=== PATIENT | female | born 1935 ===

== ENCOUNTER 2017-01-07 08:26 | Emergency (ER) | payer MEDICARE, OTHER ==
[2017-01-07 08:27] VITALS: BMI 25.7
[2017-01-07 08:41] VITALS: TEMP 97.7; O2SAT 100
--- NOTE | 2017-01-07 08:56 | ED PDOC ---
Arrival/HPI - General Chief Complaint: Trauma Time Seen by Provider: 01/07/17 08:27 Historian: Patient, Family (sheree) - History of Present Illness Narrative History of Present Illness (Text): 01/07/17 08:45 Crystal Nina is an 81 year old female, whose past medical history includes hypertension and arthritis, who presents to the emergency department accompanied with niece, with complaints of pain on the right side of her body after a mechanical fall. Patient reports she was getting out the bed when her leg got caught on to a chair and she fell on her right side hitting her head, and right back side. Patient also notes having a big bruise in her right buttock from the fall. Patient denies any loss of consciousness. She also denies chest pain, shortness of breath, headache, fever, chills, cough, nausea, vomiting, diarrhea, abdominal pain, dizziness or lightheadedness. Time/Duration: Prior to Arrival Symptom Onset: Sudden Symptom Course: Unchanged Activities at Onset: Light Context: Home, Tripped Past Medical History - Provider Review Nursing Documentation Reviewed: Yes - Infectious Disease Hx of Infectious Diseases: None - Cardiac Hx Cardiac Disorders: Yes Hx Hypertension: Yes - Pulmonary Hx Respiratory Disorders: No - Neurological Hx Neurological Disorder: No - HEENT Hx HEENT Disorder: No - Renal Hx Renal Disorder: No - Endocrine/Metabolic Hx Endocrine Disorders: No - Hematological/Oncological Hx Blood Disorders: No - Integumentary Hx Dermatological Disorder: No - Musculoskeletal/Rheumatological Hx Musculoskeletal Disorders: Yes Hx Arthritis: Yes Other/Comment: R femur fracture - Gastrointestinal Hx Gastrointestinal Disorders: No - Genitourinary/Gynecological Hx Genitourinary Disorders: No - Psychiatric Hx Psychophysiologic Disorder: Yes Hx Depression: Yes Hx Substance Use: No - Surgical History Hx Cholecystectomy: Yes Hx Orthopedic Surgery: Yes (right femur fracture) Other/Comment: R femur fracture with plate - Anesthesia Hx Anesthesia Reactions: No Hx Malignant Hyperthermia: No Family/Social History - Physician Review Nursing Documentation Reviewed: Yes Family/Social History: Unknown Family HX Smoking Status: Never Smoked Hx Alcohol Use: No Hx Substance Use: No Allergies/Home Meds Allergies/Adverse Reactions: Allergies No Known Allergies Allergy (Verified 01/07/17 08:37) Home Medications: Home Meds Medication Instructions Recorded Confirmed Allopurinol [Zyloprim] 100 mg PO HS 01/02/16 01/07/17 Aspirin [Adult Low Dose Aspirin EC] 1 tab PO DAILY 01/02/16 01/07/17 Ca/D3/Mag/Zinc/Gulshan/Tato/Mgbor 1 tab PO DAILY 01/02/16 01/07/17 [Caltrate 600+D3+Min Chew Tab] Cetirizine HCl [Cetirizine HCl] 10 mg PO HS 01/02/16 01/07/17 Doxazosin [Cardura] 4 mg PO DAILY 01/02/16 01/07/17 Fluticasone/Vilanterol [Breo 1 inh INH DAILY 01/02/16 01/07/17 Ellipta 100-25 Mcg INH] Nebivolol [Bystolic] 20 mg PO HS 01/02/16 01/07/17 traMADol/Acetaminophen [Ultracet 1 tab PO BID PRN 01/02/16 01/07/17 37.5/325 mg] DULoxetine [Cymbalta] 20 mg PO DAILY 01/07/17 01/07/17 Esomeprazole Magnesium [Nexium] 40 mg PO DAILY 01/07/17 01/07/17 Eszopiclone [Lunesta] 4 mg PO HS 01/07/17 01/07/17 Meloxicam [Mobic] 15 mg PO DAILY 01/07/17 01/07/17 Multivitamin/Iron/Folic Acid 1 tab PO DAILY 01/07/17 01/07/17 [Centrum Adults Tablet] Pravastatin Sodium [Pravachol] 40 mg PO HS 01/07/17 01/07/17 Review of Systems - Review of Systems Constitutional: absent: Fevers Respiratory: absent: SOB Cardiovascular: absent: Chest Pain Gastrointestinal: absent: Abdominal Pain Genitourinary Female: absent: Dysuria Musculoskeletal: Back Pain (right side), Other (right buttock bruising and head trauma) Physical Exam Vital Signs Reviewed: Yes Vital Signs Temp Pulse Resp BP Pulse Ox 01/07/17 10:27 97.7 F 60 18 129/58 L 100 01/07/17 08:38 97.7 F 63 16 137/64 100 Temperature: Afebrile Blood Pressure: Normal Pulse: Regular Respiratory Rate: Normal Appearance: Positive for: Well-Appearing, Non-Toxic, Comfortable Pain Distress: None Mental Status: Positive for: Alert and Oriented X 3 - Systems Exam Head: Present: Atraumatic, Normocephalic Pupils: Present: PERRL Extroacular Muscles: Present: EOMI Conjunctiva: Present: Normal Mouth: Present: Moist Mucous Membranes Respiratory/Chest: Present: Clear to Auscultation, Good Air Exchange. No: Respiratory Distress, Accessory Muscle Use Cardiovascular: Present: Regular Rate and Rhythm, Normal S1, S2. No: Murmurs Abdomen: Present: Normal Bowel Sounds. No: Tenderness, Distention, Peritoneal Signs Back: Present: Paraspinal Tenderness (right sided paralumbar tenderness) Upper Extremity: Present: Normal Inspection, Normal ROM. No: Cyanosis, Edema, Tenderness, Swelling, Deformity Lower Extremity: Present: Normal Inspection, Other (ecchymosis on right buttock) . No: Edema, Deformity Neurological: Present: GCS=15, CN II-XII Intact, Speech Normal Skin: Present: Warm, Dry, Normal Color. No: Rashes Psychiatric: Present: Alert, Oriented x 3, Normal Insight, Normal Concentration Medical Decision Making ED Course and Treatment: 01/07/17 10:[address]: Creator : Faina La FINDINGS: HEMORRHAGE: No intracranial hemorrhage. BRAIN: No mass effect or edema. Generalized cerebral atrophy appropriate with the age noted VENTRICLES: Unremarkable. No hydrocephalus. CALVARIUM: Unremarkable. No fracture PARANASAL SINUSES: Unremarkable as visualized. No significant inflammatory changes. Swollen turbinates MASTOID AIR CELLS: Unremarkable as visualized. No inflammatory changes. OTHER FINDINGS: Vertebrobasilar atherosclerotic calcifications noted. IMPRESSION: No intracranial hemorrhage or mass effect. Global cerebral atrophy commensurate with patient's age. No calvarial fracture 01/07/17 10:[address]: Creator : Faina La FINDINGS: BLADDER: Unremarkable. No mass. REPRODUCTIVE ORGANS: Multiple calcified uterine fibroids VISUALIZED BOWEL: Redundant rectosigmoid colon a multiple diverticuli here. No gross pericolonic inflammatory change PERITONEUM: Unremarkable, as visualized. No free fluid. No free air. LYMPH NODES: Unremarkable. No enlarged lymph nodes. BONES: Mild anterior subluxation of L4 relative to L5. L4-5 disc space narrowing. Subluxation attributed to degenerative ligamentous laxity associated with the facet arthrosis here. L5-S1 disc space narrowing with L5-S1 facet arthrosis. No acute osseous fractures. Dynamic compression screw transfixing a right proximal femoral fracture. No gross hardware failure. VASCULATURE: Atherosclerotic vascular calcifications OTHER FINDINGS: Right gluteal subcutaneous mid Sarai measuring up to 4.1 cm with extensive subcutaneous edema/ subcutaneous bruising -bruising spans 12 cm cephalo caudal with a width of approximately 10 cm. No intramuscular hematoma. IMPRESSION: No acute fracture.Dynamic compression screw transfixing a right proximal femoral fracture without hardware failure appreciated Right gluteal subcutaneous hematoma with extensive surrounding edema/bruising. No intramuscular hematoma 01/07/17 12:53 xr neg, pt ambulatory, advise outpt f/u and return precautions - RAD Interpretation Radiology Orders: 01/07/17 08:47 HEAD W/O CONTRAST [CT] Stat LS SPINE AP/LAT [RAD] Stat PELVIS ONE VIEW [RAD] Stat RIBS RIGHT [RAD] Stat 01/07/17 09:30 PELVIS W/O PO OR IV CONTRAST [CT] Stat It Risk And Assurance Senior Manager: Radiologist - Medication Orders Current Medication Orders: Discontinued Medications Acetaminophen (Tylenol 325mg Tab) 650 mg PO STAT STA Stop: 01/07/17 08:50 Last Admin: 01/07/17 09:57 Dose: 650 mg MAR Pain/Vitals Document 01/07/17 09:57 AB (Rec: 01/07/17 10:01 AB [id number]) Pain Reassessment Is This A Pain ReAssessment? Yes Sleep Is patient sleeping during reassessment? No Presence of Pain Presence of Pain Yes Pain Scale Used Pain Scale Used Numeric Location Left, Right or Bilateral Right Upper or Lower Upper Pain Location Body Technical Services Assistant Description Constant Intensity 5 Scale Used Numeric Radiation Location right hip, right leg Pain Behavior Facial Grimacing Aggravating Factors ADL's Changing Position Alleviating Factors Medication - Scribe Statement The provider has reviewed the documentation as recorded by the Scribe Ivory Walker Provider Scribe Attestation: All medical record entries made by the Scribe were at my direction and personally dictated by me. I have reviewed the chart and agree that the record accurately reflects my personal performance of the history, physical exam, medical decision making, and the department course for this patient. I have also personally directed, reviewed, and agree with the discharge instructions and disposition. Disposition/Present on Arrival - Present on Arrival Any Indicators Present on Arrival: No History of DVT/PE: No History of Uncontrolled Diabetes: No Urinary Catheter: No History of Decub. Ulcer: No History Surgical Site Infection Following: None - Disposition Have Diagnosis and Disposition been Completed?: Yes Diagnosis: Fall, Head injury, Back pain Disposition: HOME/ ROUTINE Disposition Time: 12:53 Condition: STABLE Discharge Instructions (ExitCare): Fall Prevention for Older Adults (GEN), Head Injury (ED), Acute Low Back Pain (DC), Contusion in Adults (DC), Hematoma ( ED) Additional Instructions: please followup with your doctor. return to er with worsening symptoms or concerns. Prescriptions: Naproxen [Naprosyn] 500 mg PO BID PRN #14 tablet PRN Reason: Pain, Mild (1-3) Referrals: Mesfin Bronson MD [Primary Care Provider] - Follow up with primary Forms: [employer] ([place]anian)
--- NOTE | 2017-01-07 10:08 | CT ---
PROCEDURE: CT HEAD WITHOUT CONTRAST. HISTORY: fall COMPARISON: None TECHNIQUE: Axial computed tomography images were obtained through the head/brain without intravenous contrast. Radiation dose: Total exam DLP = 692 mGy-cm. This CT exam was performed using one or more of the following dose reduction techniques: Automated exposure control, adjustment of the mA and/or kV according to patient size, and/or use of iterative reconstruction technique. FINDINGS: HEMORRHAGE: No intracranial hemorrhage. BRAIN: No mass effect or edema. Generalized cerebral atrophy appropriate with the age noted VENTRICLES: Unremarkable. No hydrocephalus. CALVARIUM: Unremarkable. No fracture PARANASAL SINUSES: Unremarkable as visualized. No significant inflammatory changes. Swollen turbinates MASTOID AIR CELLS: Unremarkable as visualized. No inflammatory changes. OTHER FINDINGS: Vertebrobasilar atherosclerotic calcifications noted. IMPRESSION: No intracranial hemorrhage or mass effect. Global cerebral atrophy commensurate with patient's age No calvarial fracture
--- NOTE | 2017-01-07 10:32 | CT ---
PROCEDURE: CT Pelvis without contrast HISTORY: fall, r/o pelvic fx COMPARISON: None. TECHNIQUE: Contiguous axial images of the pelvis . No intravenous or oral contrast given. Coronal and sagittal reformats generated. Radiation dose: Total exam DLP = 243 mGy-cm. This CT exam was performed using one or more of the following dose reduction techniques: Automated exposure control, adjustment of the mA and/or kV according to patient size, and/or use of iterative reconstruction technique. FINDINGS: BLADDER: Unremarkable. No mass. REPRODUCTIVE ORGANS: Multiple calcified uterine fibroids VISUALIZED BOWEL: Redundant rectosigmoid colon a multiple diverticuli here. No gross pericolonic inflammatory change PERITONEUM: Unremarkable, as visualized. No free fluid. No free air. LYMPH NODES: Unremarkable. No enlarged lymph nodes. BONES: . Mild anterior subluxation of L4 relative to L5. L4-5 disc space narrowing. Subluxation attributed to degenerative ligamentous laxity associated with the facet arthrosis here. L5-S1 disc space narrowing with L5-S1 facet arthrosis. No acute osseous fractures. Dynamic compression screw transfixing a right proximal femoral fracture. No gross hardware failure. VASCULATURE: Atherosclerotic vascular calcifications OTHER FINDINGS: Right gluteal subcutaneous mid Sarai measuring up to 4.1 cm with extensive subcutaneous edema/ subcutaneous bruising -bruising spans 12 cm cephalo caudal with a width of approximately 10 cm. No intramuscular hematoma. IMPRESSION: No acute fracture.Dynamic compression screw transfixing a right proximal femoral fracture without hardware failure appreciated Right gluteal subcutaneous hematoma with extensive surrounding edema/bruising. No intramuscular hematoma
[2017-01-07 10:46] VITALS: BP 129/58; PULSE 60; RESP 18
--- NOTE | 2017-01-07 12:39 | RAD ---
PROCEDURE: HISTORY: fall COMPARISON: None TECHNIQUE: Four views FINDINGS: No rib fracture. No pneumothorax for right hemithorax clear Thoracolumbar scoliosis, multilevel spondylosis and intervening degenerative disc space narrowing lumbar level most notable. Right upper quadrant cholecystectomy clips Right shoulder arthrosis IMPRESSION: No right rib fracture. No pneumothorax or right pleural effusion Arthrosis
--- NOTE | 2017-01-07 12:45 | RAD ---
PROCEDURE: Radiographs of the Lumbar Spine. HISTORY: fall COMPARISON: CT pelvis without contrast 01/07/2017 FINDINGS: BONES: Thoraco lumbar scoliosis. Diffuse intervertebral lumbar level disc space narrowing a diffuse marginal osteophytes. Right L5 mild degenerative like wedging with subchondral sclerosis - findings suggests chronicity. Prominent vacuum disc phenomena here Schmorl's node like indentations noted. No suspect acute vertebral body fracture DISC SPACES: Diffuse disc space narrowing OTHER FINDINGS: Pelvic calcified fibroids. Right sacroiliac minimal sclerotic arthrosis. There is trace contrast with rugal relief consistent with small amount of oral barium likely administered during the prior CT pelvic exam or prior to that Extensive atherosclerotic vascular calcification descending abdominal aorta and its branches. Diffuse facet arthrosis most pronounced at L4-5 and L5-S1. The CT pelvic spondylolisthesis of L4 relative to L5 is less pronounced on this exam IMPRESSION: No suspect acute vertebral body fracture. Extensive degenerative osseous changes. Extensive atherosclerotic vascular disease
--- NOTE | 2017-01-07 12:50 | RAD ---
PROCEDURE: Radiographs of the pelvis. HISTORY: fall COMPARISON: None. FINDINGS: BONES: Pelvic Bones: No acute fracture or lytic lesion Hips: Status post inferred fracture treatment- right proximal femoral screw compression. No hardware failure noted Bilateral degenerative changes. JOINTS: Inferior lumbar facet hypertrophic arthrosis Sacroiliac Joints: Mild right sclerotic versus vacuum disc phenomena Pubic Symphysis: Unremarkable. OTHER FINDINGS: Calcified uterine fibroid IMPRESSION: No acute fracture
== END 2017-01-07 11:23 | disposition home or self-care (01) ==
LOC: ED 08:26
DX: S09.90XA Unspecified injury of head, initial encounter (principal); W01.0XXA Fall on same level from slipping, tripping and stumbling without subsequent striking against object, initial encounter; Y92.009 Unspecified place in unspecified non-institutional (private) residence as the place of occurrence of the external cause; M54.9 Dorsalgia, unspecified

== ENCOUNTER 2017-12-13 15:14 | Inpatient (IN) | payer MEDICARE, OTHER ==
--- NOTE | 2017-12-13 15:48 | ED PDOC ---
Arrival/HPI <Bubba Luong - Last Filed: 12/13/17 16:56> - History of Present Illness Time/Duration: 24 hours Symptom Course: Unchanged Quality: Other Severity Level: Mild <Du Zuleta - Last Filed: 12/13/17 18:35> - General Chief Complaint: GI Problem Time Seen by Provider: 12/13/17 15:34 - History of Present Illness Narrative History of Present Illness (Text): Patient is an 81 year old female, whose past medical history includes hypertension and arthritis, who presents to the emergency department with blood in stool. Patient states that she noticed bright red blood and had loose stools this morning. Patient also admits to constipation. Her last colonoscopy was 4 years ago and it was normal. Patient denies fevers, headaches, chills, shortness of breath, chest pain, abdominal pain, N/V, or urinary symptoms. PMH: Dr. Bronson 12/13/17 16:34 (Du Zuleta) Past Medical History - Provider Review Nursing Documentation Reviewed: Yes - Travel History Have you recently traveled outside [place] w/in the past 3 mons?: No - Infectious Disease Hx of Infectious Diseases: None - Reproductive Menopause: Yes - Cardiac Hx Cardiac Disorders: Yes Hx Hypertension: Yes - Pulmonary Hx Respiratory Disorders: No - Neurological Hx Neurological Disorder: No - HEENT Hx HEENT Disorder: No - Renal Hx Renal Disorder: No - Endocrine/Metabolic Hx Endocrine Disorders: No - Hematological/Oncological Hx Blood Disorders: No - Integumentary Hx Dermatological Disorder: No - Musculoskeletal/Rheumatological Hx Musculoskeletal Disorders: Yes Hx Arthritis: Yes Other/Comment: R femur fracture - Gastrointestinal Hx Gastrointestinal Disorders: No - Genitourinary/Gynecological Hx Genitourinary Disorders: No - Psychiatric Hx Psychophysiologic Disorder: Yes Hx Depression: Yes Hx Substance Use: No - Surgical History Hx Cholecystectomy: Yes Hx Orthopedic Surgery: Yes (right femur fracture) Other/Comment: R femur fracture with plate - Anesthesia Hx Anesthesia Reactions: No Hx Malignant Hyperthermia: No <Du Zuleta - Last Filed: 12/13/17 18:35> Family/Social History - Physician Review Nursing Documentation Reviewed: Yes Family/Social History: No Known Family HX Smoking Status: Never Smoked Hx Alcohol Use: No Hx Substance Use: No <Du Zuleta - Last Filed: 12/13/17 18:35> Allergies/Home Meds <Bubba Luong - Last Filed: 12/13/17 16:56> <Du Zuleta - Last Filed: 12/13/17 18:35> Allergies/Adverse Reactions: Allergies No Known Allergies Allergy (Verified 01/07/17 08:37) Home Medications: Home Meds Medication Instructions Recorded Confirmed Allopurinol [Zyloprim] 100 mg PO HS 01/02/16 12/13/17 Aspirin [Adult Low Dose Aspirin EC] 1 tab PO DAILY 01/02/16 12/13/17 Ca/D3/Mag/Zinc/Gulshan/Tato/Mgbor 1 tab PO DAILY 01/02/16 12/13/17 [Caltrate 600+D3+Min Chew Tab] Cetirizine HCl [Cetirizine HCl] 10 mg PO HS 01/02/16 12/13/17 Doxazosin [Cardura] 4 mg PO DAILY 01/02/16 12/13/17 Fluticasone/Vilanterol [Breo 1 inh INH DAILY 01/02/16 12/13/17 Ellipta 100-25 Mcg INH] Nebivolol [Bystolic] 20 mg PO HS 01/02/16 12/13/17 traMADol/Acetaminophen [Ultracet 1 tab PO BID PRN 01/02/16 12/13/17 37.5/325 mg] DULoxetine [Cymbalta] 20 mg PO DAILY 01/07/17 12/13/17 Eszopiclone [Lunesta] 3 mg PO HS 01/07/17 12/13/17 Meloxicam [Mobic] 15 mg PO DAILY 01/07/17 12/13/17 Multivitamin/Iron/Folic Acid 1 tab PO DAILY 01/07/17 12/13/17 [Centrum Adults Tablet] Pravastatin Sodium [Pravachol] 40 mg PO HS 01/07/17 12/13/17 Esomeprazole Magnesium [Nexium] 40 mg PO DAILY 12/13/17 12/13/17 Review of Systems - Physician Review All systems were reviewed & negative as marked: Yes - Review of Systems Constitutional: Normal Eyes: Normal ENT: Normal Respiratory: Normal Cardiovascular: Normal Gastrointestinal: Constipation, Hematochezia. absent: Abdominal Pain, Diarrhea , Nausea, Vomiting, Hematemesis Genitourinary Female: Normal Musculoskeletal: Normal Skin: Normal Neurological: Normal Endocrine: Normal Hemo/Lymphatic: Normal Psychiatric: Normal <Asuncion Zuletai - Last Filed: 12/13/17 18:35> Physical Exam Vital Signs Reviewed: Yes Temperature: Afebrile Blood Pressure: Hypertensive Pulse: Regular Respiratory Rate: Normal Appearance: Positive for: Well-Appearing, Non-Toxic, Comfortable Pain Distress: None Mental Status: Positive for: Alert and Oriented X 3 - Systems Exam Head: Present: Atraumatic, Normocephalic Pupils: Present: PERRL Extroacular Muscles: Present: EOMI Conjunctiva: Present: Normal Mouth: Present: Moist Mucous Membranes Neck: Present: Normal Range of Motion Respiratory/Chest: Present: Clear to Auscultation, Good Air Exchange. No: Respiratory Distress, Accessory Muscle Use, Wheezes, Rales, Rhonchi Cardiovascular: Present: Regular Rate and Rhythm, Normal S1, S2. No: Murmurs, Rub, Gallop Abdomen: Present: Normal Bowel Sounds. No: Tenderness, Distention, Peritoneal Signs Rectal: Present: Occult Blood, Gross Blood, Hemorrhoids (Non-thrombosed external hemorrhoid appreciated in the 6 o'clock position, gross blood noted in the rectal vault, hemeoccult was positive), Normal Rectal Tone. No: Rectal Tenderness, Melena, Fissures, Nodule/Mass/Lesions Upper Extremity: Present: Normal Inspection. No: Cyanosis, Edema Lower Extremity: Present: Normal Inspection. No: Edema Neurological: Present: GCS=15, CN II-XII Intact, Speech Normal Skin: Present: Warm, Dry, Normal Color. No: Rashes Psychiatric: Present: Alert, Oriented x 3, Normal Insight, Normal Concentration <Asuncion Zuletai - Last Filed: 12/13/17 18:35> Vital Signs Temp Pulse Resp BP Pulse Ox 12/13/17 18:27 98 F 74 18 150/74 99 12/13/17 15:37 98 F 77 18 159/79 H 98 Medical Decision Making - EKG Interpretation Interpreted by ED Physician: Yes Type: 12 lead EKG <Bubba Luong - Last Filed: 12/13/17 16:56> Reassessment Condition: Re-examined, Unchanged <Danette Zuletaanni - Last Filed: 12/13/17 18:35> ED Course and Treatment: Impression: Patient is a 82 year old female presenting to the ED with blood in stool. Differential Diagnosis included but are not limited to: - Hemorrhoids - Colon cancer - Anal fissure Plan: -- Hemeoccult testing -- CBC -- CMP -- CXR -- Lipase -- Troponin -- EKG -- Magnesium -- ESR -- IV fluids -- UA -- CT abdomen and pelvis w/o contrast Progress Notes: 12/13/17 16:16 - Hemeoccult: positive - EKG: NSR at 87 bpm - CXR: no acute disease appreciated - Patient just had a bowel movement, it was loose stools with bright red blood. 12/13/17 17:44 - H.4, Hct: 31.1 - Dr. Ferreira agreed to admit patient for observation. Patient is stable. (Du Zuleta) - Lab Interpretations Lab Results: 12/13/17 17:07 12/13/17 17:07 Lab Results 12/13/17 17:07: Urine Color Yellow, Urine Appearance Clear, Urine pH 6.5, Ur Specific [place] 1.010, Urine Protein Trace H, Urine Glucose (UA) Negative, Urine Ketones Negative, Urine Blood Trace-intact H, Urine Nitrate Negative, Urine Bilirubin Negative, Urine Urobilinogen 0.2, Ur Leukocyte Esterase Negative , Urine RBC Pending, Urine WBC Pending 12/13/17 17:07: Sodium 136, Potassium 4.1, Chloride 98, Carbon Dioxide 28, Anion Gap 13, BUN 25 H, Creatinine 1.5 H, Est GFR ( Amer) 40, Est GFR ( Non-Af Amer) 33, Random Glucose 119 H, Calcium 9.4, Magnesium 2.1, Total Bilirubin 0.3, AST 24, ALT 19, Alkaline Phosphatase 47, Troponin I < 0.01, Total Protein 7.0, Albumin 4.2, Globulin 2.8, Albumin/Globulin Ratio 1.5, Lipase 143 12/13/17 17:07: WBC 5.5, RBC 3.60, Hgb 10.4 L, Hct 31.1 L, MCV 86.4, MCH 28.9, MCHC 33.4, RDW 14.5, Plt Count 204, MPV 9.3, Gran % 55.7, Lymph % (Auto) 33.2, [place] % (Auto) 6.4 H, Eos % (Auto) 4.5, Baso % (Auto) 0.2, Gran # 3.07, Lymph # ( Auto) 1.8, [place] # (Auto) 0.4, Eos # (Auto) 0.3, Baso # (Auto) 0.01, ESR Pending - RAD Interpretation Radiology Orders: 12/13/17 16:11 CHEST PORTABLE [RAD] Stat 12/13/17 17:48 ABDOMEN & PELVIS [ABD & PELVIS W/O PO OR IV CONT] [CT] Stat - EKG Interpretation EKG Interpretation (Text): NSR @[address] elevations or T wave inversions (BosompemBubba) - Medication Orders Current Medication Orders: Allopurinol (Zyloprim) 100 mg PO HS ITA Amlodipine Besylate (Norvasc) 5 mg PO DAILY ITA Doxazosin Mesylate (Cardura) 4 mg PO DAILY ITA Duloxetine HCl (Cymbalta) 20 mg PO DAILY ITA Sodium Chloride (Sodium Chloride 0.9%) 1,000 mls @ 100 mls/hr IV .Q10H ITA Last Admin: 12/13/17 17:01 Dose: 100 mls/hr eMAR Start Stop Document 12/13/17 17:01 LA (Rec: 12/13/17 17:01 LA [id number]) Intravenous Solution Start Date 12/13/17 Start Time 17:01 Pantoprazole Sodium (Protonix 40mg Ivpb) 40 mg in 100 mls @ 20 mls/hr IVPB .Q5H ITA Last Admin: 12/13/17 18:16 Dose: 20 mls/hr eMAR Start Stop Document 12/13/17 18:16 LA (Rec: 12/13/17 18:17 LA [id number]) Intravenous Solution Start Date 12/13/17 Start Time 18:17 Eszopiclone [Lunesta (] 3 Mg (Home Med)) 3 mg PO HS ITA Nebivolol [Bystolic] (20 Mg (Home Med)) 20 mg PO HS ITA Pantoprazole Sodium (Protonix Inj) 40 mg IVP Q12 ITA Disposition/Present on Arrival <BosompemBubba - Last Filed: 12/13/17 16:56> - Present on Arrival Any Indicators Present on Arrival: No History of DVT/PE: No History of Uncontrolled Diabetes: No Urinary Catheter: No History of Decub. Ulcer: No History Surgical Site Infection Following: None - Disposition Have Diagnosis and Disposition been Completed?: Yes Disposition Time: 18:04 Patient Plan: Admission, Observation <Du Zuleta - Last Filed: 12/13/17 18:35> - Disposition Diagnosis: GI bleed Disposition: HOSPITALIZED Patient Problems: Current Active Problems Problem Status Onset GI bleed Acute Condition: STABLE
[2017-12-13] MEDS: Sodium Chloride 0.9% 1,000 ML IV SCH (17:01)
[2017-12-13 17:15] LABS: BASO # 0.01 K/mm3 (0.0-2.0); BASO % 0.2 % (0.0-3.0); EOS # 0.3 (0.0-0.7); EOS % 4.5 % (1.5-5.0); GRAN # 3.07 (1.4-6.5); GRAN % 55.7 % (50.0-68.0); HEMOGLOBIN 10.4 g/dL (12.0-16.0); LYMPH # 1.8 (1.2-3.4); LYMPH % 33.2 % (22.0-35.0); MEAN CELL VOLUME 86.4 fl (80.0-105.0); MEAN CORPUSCULAR HEMOGLOBIN 28.9 pg (25.0-35.0); MEAN CORPUSCULAR HGB CONC 33.4 g/dl (31.0-37.0); MEAN PLATELET VOLUME 9.3 fl (7.0-11.0); MONO # 0.4 (0.1-0.6); MONO % 6.4 % (1.0-6.0); RBC 3.6 10^6/uL (3.5-6.1); RED CELL DISTRIBUTION WIDTH 14.5 % (11.5-14.5); WHITE BLOOD COUNT 5.5 10^3/ul (4.5-11.0)
[2017-12-13 17:31] LABS: PH,URINE 6.5 (4.7-8.0); URINE BILIRUBIN NEGATIVE (NEGATIVE); URINE BLOOD TRACE-INTACT (NEGATIVE); URINE GLUCOSE (UA) NEGATIVE (NEGATIVE); URINE LEUKOCYTE ESTERASE NEGATIVE Leu/uL (NEGATIVE); URINE PROTEIN TRACE mg/dL (<30 mg/dL); URINE UROBILINOGEN 0.2 E.U./dL (<1 E.U./dL)
[2017-12-13 17:34] LABS: ALB/GLOB RATIO 1.5 (1.1-1.8); ALBUMIN 4.2 g/dL (3.0-4.8); ALT/SGPT 19 U/L (7-56); AST/SGOT 24 U/L (14-36); BLOOD UREA NITROGEN 25 mg/dL (7-21); CALCIUM 9.4 mg/dL (8.4-10.5); GFR NON-AFRICAN AMERICAN 33; LIPASE 143 U/L (23-300)
[2017-12-13 17:36] LABS: URINE APPEARANCE CLEAR (CLEAR); URINE COLOR YELLOW (YELLOW)
[2017-12-13 17:45] LABS: TROPONIN I < 0.01 ng/mL
[2017-12-13] MEDS ORDERED: Pantoprazole 40mg/100mL NS 40 MG/100 ML BAG IVPB SCH (17:45)
--- NOTE | 2017-12-13 18:12 | RAD ---
Date of service: 12/13/2017 HISTORY: GI bleed COMPARISON: Frontal chest radiograph 12/25/2015. FINDINGS: LUNGS: No active pulmonary disease. PLEURA: No significant pleural effusion identified, no pneumothorax apparent. CARDIOVASCULAR: Normal. OSSEOUS STRUCTURES: No significant abnormalities. VISUALIZED UPPER ABDOMEN: Normal. OTHER FINDINGS: None. IMPRESSION: No interval acute cardiopulmonary disease appreciated.
[2017-12-13 19:30] LABS: URINE RBC 0 - 2 /hpf (0-2); URINE WBC 0 - 2 /hpf (0-6)
[2017-12-13 19:31] LABS: URINE BACTERIA SMALL (NEG); URINE HYALINE CAST 0 - 2 /hpf
[2017-12-13 21:33] VITALS: BMI 22.4
[2017-12-13] MEDS: ESZOPICLONE 3 MG PO SCH (22:01)
[2017-12-13] MEDS: NEBIVOLOL 20 MG PO SCH (22:01)
[2017-12-14] MEDS: Sodium Chloride 0.9% 1,000 ML IV SCH (02:02)
[2017-12-14 06:29] LABS: BASO # 0.01 K/mm3 (0.0-2.0); BASO % 0.2 % (0.0-3.0); EOS # 0.2 (0.0-0.7); EOS % 4.2 % (1.5-5.0); GRAN # 2.53 (1.4-6.5); GRAN % 48.9 % (50.0-68.0); LYMPH # 2.1 (1.2-3.4); LYMPH % 39.6 % (22.0-35.0); MEAN CELL VOLUME 86.4 fl (80.0-105.0); MEAN CORPUSCULAR HEMOGLOBIN 28.7 pg (25.0-35.0); MEAN CORPUSCULAR HGB CONC 33.2 g/dl (31.0-37.0); MEAN PLATELET VOLUME 9.7 fl (7.0-11.0); MONO # 0.4 (0.1-0.6); MONO % 7.1 % (1.0-6.0); RBC 2.86 10^6/uL (3.5-6.1); RED CELL DISTRIBUTION WIDTH 14.7 % (11.5-14.5); WHITE BLOOD COUNT 5.2 10^3/ul (4.5-11.0)
[2017-12-14 06:44] LABS: HEMOGLOBIN 8.2 g/dL (12.0-16.0)
[2017-12-14 06:49] LABS: ALB/GLOB RATIO 1.3 (1.1-1.8); ALBUMIN 3.2 g/dL (3.0-4.8); CALCIUM 8.6 mg/dL (8.4-10.5)
--- NOTE | 2017-12-14 11:30 | CT ---
Date of service: 12/13/2017 PROCEDURE: CT Abdomen and Pelvis without intravenous contrast HISTORY: GI bleeding COMPARISON: Comparison is made to the previous CT of the pelvis without contrast dated 01/07/2017. TECHNIQUE: Axial and reformatted coronal and sagittal CT images of the abdomen and pelvis were obtained without IV or oral contrast administration.. Contrast dose: 0 Radiation dose: Total exam DLP = 223.03 mGy-cm. This CT exam was performed using one or more of the following dose reduction techniques: Automated exposure control, adjustment of the mA and/or kV according to patient size, and/or use of iterative reconstruction technique. FINDINGS: LOWER THORAX: No evidence of acute pathology or suspicious lesion of the lung bases. No evidence of pleural effusion. LIVER: There is low-attenuation lesion at the posterior aspect of the liver dome measures 1.4 centimeter. There is also low-attenuation partially calcified lesion at the inferior aspect of the right liver lobe measures 2.6 centimeter in the transverse diameter and 2.7 centimeter in the AP diameter. GALLBLADDER AND BILE DUCTS: Status post cholecystectomy. No evidence of significant intrahepatic biliary ductal dilatation. PANCREAS: Unremarkable. No gross lesion or ductal dilatation. SPLEEN: Unremarkable. ADRENALS: Unremarkable. No mass. KIDNEYS AND URETERS: There are low-attenuation lesions in both kidneys may represent renal cysts. No evidence of hydronephrosis. There is 3 millimeter in calcification at the lower pole of the left kidney may represent nonobstructing renal calculi. 2 millimeter cortical calcification noted at the upper pole of the right kidney. VASCULATURE: Unremarkable. No aortic aneurysm. BOWEL: Colonic diverticulosis are noted more prominent in the sigmoid colon. The stomach is not distended therefore cannot be evaluated. . No obstruction. The assessment of the GI system is limited without oral contrast administration. No evidence of obstructing mass lesion in the small and large bowel loops noted in this study. The assessment for small bowel or large bowel wall thickening is limited this exam. The APPENDIX: No evidence of appendicitis. PERITONEUM: Unremarkable. No free fluid. No free air. LYMPH NODES: Unremarkable. No enlarged lymph nodes. BLADDER: Diffuse urinary bladder wall thickening is noted. REPRODUCTIVE: Calcified lesion in the uterus are noted likely represent calcified fibroids. . BONES: No acute fracture. Old fractures at the posterior aspect of the 10 11th and left 12th ribs. Hardware are noted at the right femur. OTHER FINDINGS: None. IMPRESSION: Limited assessment of the gastrointestinal system without oral contrast administration. No evidence of obstructing mass lesion. Sigmoid colon diverticulosis without definite evidence of diverticulitis. 3 millimeter nonobstructing calculus at the lower pole of the left kidney. No evidence of hydronephrosis. Low-attenuation lesions in the liver. 2.6 centimeter lesion in the inferior aspect of the right liver lobe partially calcified. Diffuse urinary bladder wall thickening suspicious for cystitis. Preliminary report was submitted by [facility].
[2017-12-14 13:20] LABS: BASO # 0.01 K/mm3 (0.0-2.0); BASO % 0.2 % (0.0-3.0); EOS # 0.2 (0.0-0.7); GRAN # 2.88 (1.4-6.5); GRAN % 57.7 % (50.0-68.0); LYMPH # 1.6 (1.2-3.4); LYMPH % 32.7 % (22.0-35.0); MEAN CORPUSCULAR HEMOGLOBIN 28.8 pg (25.0-35.0); MEAN CORPUSCULAR HGB CONC 33.5 g/dl (31.0-37.0); MEAN PLATELET VOLUME 8.8 fl (7.0-11.0); MONO # 0.3 (0.1-0.6); MONO % 6.4 % (1.0-6.0); RBC 2.78 10^6/uL (3.5-6.1); RED CELL DISTRIBUTION WIDTH 14.5 % (11.5-14.5)
--- NOTE | 2017-12-14 15:01 | CP.PCM.CON ---
<JeetTristin - Last Filed: 12/14/17 14:43> History of Present Illness - History of Present Illness History of Present Illness: GI Consult Note for Dr. Miranda's Service - Enedelia PGY2 Reason for Consult: GI Hemorrhage Mrs. Nina is an 82 year old female with a past medical history significant for HTN, OA, GERD, Osteoporosis and MDD who presents after multiple episodes of hematochezia. Patient reports that earlier yesterday morning she noticed that she had large streaks of bright red blood mixed in with her BM. She reports that this was a loose BM and denies any straining or hard stools. She has never experienced this before and also denies any history of melena or dark tarry stools. She does endorse intermittent constipation. She reports having a colonoscopy four years ago and that she was told that it was normal. She denies any recent illness, sick contacts, changes in diet, fevers, chills, headache, N/VC/D, hematemesis, melena, , changes in urine output, or skin changes. Since her admission, she has been noted to have multiple BM's with associated hematochezia. A CT Abdomen/Pelvis without contrast was done and showed sigmoid diverticulosis without evidence diverticulitis and a partially calcified low attenuation liver lesion in the right hepatic lobe. PMH: HTN, OA, GERD, Osteoporosis and Depression PSH: Right Femur Repair s/p traumatic fracture, Cholecystectomy Family History: Denies Social History: Denies tobacco or illicit drug use; Social alcohol consumption Allergies: NKDA Home Medications: As per JUN PMD: Dr. Bronson Review of Systems - Review of Systems Review of Systems: As stated in HPI, otherwise negative Past Patient History - Infectious Disease Hx of Infectious Diseases: None - Past Social History Smoking Status: Never Smoked - CARDIAC Hx Cardiac Disorders: Yes Hx Hypertension: Yes - PULMONARY Hx Respiratory Disorders: No - NEUROLOGICAL Hx Neurological Disorder: No - HEENT Hx HEENT Problems: No - RENAL Hx Chronic Kidney Disease: No - ENDOCRINE/METABOLIC Hx Endocrine Disorders: No - HEMATOLOGICAL/ONCOLOGICAL Hx Blood Disorders: No - INTEGUMENTARY Hx Dermatological Problems: No - MUSCULOSKELETAL/RHEUMATOLOGICAL Hx Arthritis: Yes Hx Falls: No - GASTROINTESTINAL Hx Gastrointestinal Disorders: No - GENITOURINARY/GYNECOLOGICAL Hx Genitourinary Disorders: No - PSYCHIATRIC Hx Psychophysiologic Disorder: Yes Hx Depression: Yes - SURGICAL HISTORY Hx Cholecystectomy: Yes Hx Orthopedic Surgery: Yes (right femur fracture) Other/Comment: R femur fracture with plate - ANESTHESIA Hx Anesthesia Reactions: No Hx Malignant Hyperthermia: No Meds Allergies/Adverse Reactions: Allergies Allergy/AdvReac Type Severity Reaction Status Date / Time No Known Allergies Allergy Verified 01/07/17 08:37 - Medications Medications: Current Medications Allopurinol (Zyloprim) 100 mg PO [facility] Last Admin: 12/13/17 22:05 Dose: 100 mg Amlodipine Besylate (Norvasc) 5 mg PO DAILY [facility] Last Admin: 12/14/17 09:39 Dose: 5 mg Doxazosin Mesylate (Cardura) 4 mg PO DAILY [facility] Last Admin: 12/14/17 09:38 Dose: 4 mg Duloxetine HCl (Cymbalta) 20 mg PO DAILY [facility] Last Admin: 12/14/17 09:39 Dose: 20 mg Sodium Chloride (Sodium Chloride 0.9%) 1,000 mls @ 100 mls/hr IV .Q10H [facility] Last Admin: 12/14/17 02:02 Dose: 100 mls/hr Eszopiclone [Lunesta (] 3 Mg (Home Med)) 3 mg PO [facility] Last Admin: 12/13/17 22:01 Dose: Not Given Nebivolol [Bystolic] (20 Mg (Home Med)) 20 mg PO [facility] Last Admin: 12/13/17 22:01 Dose: Not Given Pantoprazole Sodium (Protonix Inj) 40 mg IVP Q12 [facility] Last Admin: 12/14/17 09:40 Dose: 40 mg Physical Exam - Constitutional Appears: Non-toxic, No Acute Distress - Head Exam Head Exam: ATRAUMATIC, NORMOCEPHALIC - Eye Exam Eye Exam: EOMI - ENT Exam ENT Exam: Mucous Membranes Moist - Neck Exam Neck exam: Positive for: Full Rom - Respiratory Exam Respiratory Exam: NORMAL BREATHING PATTERN. absent: Accessory Muscle Use, Respiratory Distress - Cardiovascular Exam Cardiovascular Exam: REGULAR RHYTHM, RRR, +S1, +S2 - GI/Abdominal Exam GI & Abdominal Exam: Normal Bowel Sounds, Soft. absent: Bruit, Diminished Bowel Sounds, Distended, Firm, Guarding, Hernia, Hyperactive Bowel Sounds, Hypoactive Bowel Sounds, Mass, Organomegaly, Pulsatile Mass, Rebound, Rigid, Tenderness - Rectal Exam Rectal Exam: Bloody Stool (Bright red blood in rectal vault), Hemorrhoids ( External (non-thrombosed)). absent: Deferred, Black Stool, Fecal Impaction, NORMAL INSPECTION - Neurological Exam Neurological exam: Alert, Oriented x3 - Psychiatric Exam Psychiatric exam: Normal Affect, Normal Mood - Skin Skin Exam: Dry, Intact, Normal Color, Warm Results - Vital Signs Recent Vital Signs: Last Vital Signs Temp 98 F 12/14/17 08:02 Pulse 81 12/14/17 14:00 Resp 20 12/14/17 08:02 BP 164/69 H 12/14/17 09:39 Pulse Ox 97 12/14/17 08:02 - Labs Result Diagrams: 12/14/17 13:15 12/14/17 05:30 Labs: Laboratory Results - last 24 hr 12/14/17 12/14/17 12/14/17 05:30 05:30 05:30 WBC 5.2 RBC 2.86 L Hgb 8.2 L D Hct 24.7 L MCV 86.4 MCH 28.7 MCHC 33.2 RDW 14.7 H Plt Count 190 MPV 9.7 Gran % 48.9 L Lymph % (Auto) 39.6 H [place] % (Auto) 7.1 H Eos % (Auto) 4.2 Baso % (Auto) 0.2 Gran # 2.53 Lymph # (Auto) 2.1 [place] # (Auto) 0.4 Eos # (Auto) 0.2 Baso # (Auto) 0.01 Sodium 139 Potassium 4.8 Chloride 106 Carbon Dioxide 28 Anion Gap 10 BUN 21 Creatinine 1.2 Est GFR ( Amer) 52 Est GFR (Non-Af Amer) 43 Random Glucose 111 H Calcium 8.6 Total Bilirubin 0.3 AST 29 ALT 27 Alkaline Phosphatase 37 L D Total Protein 5.6 L Albumin 3.2 Globulin 2.4 Albumin/Globulin Ratio 1.3 Carcinoembryonic Ag 1.4 Blood Type Blood Type Confirm Antibody Screen BBK History Checked 12/14/17 12/14/17 12/14/17 10:00 10:36 13:15 WBC 5.0 RBC 2.78 L Hgb 8.0 L Hct 23.9 L MCV 86.0 MCH 28.8 MCHC 33.5 RDW 14.5 Plt Count 165 MPV 8.8 Gran % 57.7 Lymph % (Auto) 32.7 [place] % (Auto) 6.4 H Eos % (Auto) 3.0 Baso % (Auto) 0.2 Gran # 2.88 Lymph # (Auto) 1.6 [place] # (Auto) 0.3 Eos # (Auto) 0.2 Baso # (Auto) 0.01 Sodium Potassium Chloride Carbon Dioxide Anion Gap BUN Creatinine Est GFR ( Amer) Est GFR (Non-Af Amer) Random Glucose Calcium Total Bilirubin AST ALT Alkaline Phosphatase Total Protein Albumin Globulin Albumin/Globulin Ratio Carcinoembryonic Ag Blood Type A POSITIVE Blood Type Confirm A POSITIVE Antibody Screen Negative BBK History Checked No verified bt Assessment & Plan - Assessment and Plan (Free Text) Assessment: 82 year old female with a past medical history significant for HTN, OA, GERD, Osteoporosis and MDD who presents after multiple episodes of hematochezia. Since her admission, she has been noted to have multiple BM's with associated hematochezia. A CT Abdomen/Pelvis without contrast was done and showed sigmoid diverticulosis without evidence diverticulitis and a partially calcified low attenuation liver lesion in the right hepatic lobe. Plan: -Patient to have EGD today (12/14) in the afternoon -NM GI Scan negative for any GI hemorrhage -CT Abdomen/Pelvis without contrast was done and showed sigmoid diverticulosis without evidence diverticulitis and a partially calcified low attenuation liver lesion in the right hepatic lobe -H/H dropped to 8.0/23.9 from 10.4/31.1 on admission; Continue to monitor with Q6 CBC's -Continue Half Normal Saline at 75mls/hr -NPO (Except Medications) -Continue IVP PPI Q12 Patient seen and case discussed with attending, Dr. Miranda. - Date & Time Date: 12/14/17 Time: 15:01 <Titus Miranda V - Last Filed: 12/14/17 23:34> Meds - Medications Medications: Current Medications Allopurinol (Zyloprim) 100 mg PO [facility] Last Admin: 12/14/17 21:00 Dose: 100 mg Amlodipine Besylate (Norvasc) 5 mg PO DAILY [facility] Last Admin: 12/14/17 09:39 Dose: 5 mg Bisacodyl (Dulcolax) 10 mg PO ONCE ONE Stop: 12/15/17 07:01 Doxazosin Mesylate (Cardura) 4 mg PO DAILY [facility] Last Admin: 12/14/17 09:38 Dose: 4 mg Duloxetine HCl (Cymbalta) 20 mg PO DAILY [facility] Last Admin: 12/14/17 09:39 Dose: 20 mg Furosemide (Lasix) 20 mg IVP ONCE ONE Stop: 12/15/17 00:02 Sodium Chloride (Sodium Chloride 0.45%) 1,000 mls @ 75 mls/hr IV .[id number] [facility] Sodium Chloride (Sodium Chloride 0.9%) 1,000 mls @ 100 mls/hr IV .Q10H [facility] Last Admin: 12/14/17 17:38 Dose: Not Given Eszopiclone [Lunesta (] 3 Mg (Home Med)) 3 mg PO HS [facility] Last Admin: 12/14/17 21:00 Dose: Not Given Nebivolol [Bystolic] (20 Mg (Home Med)) 20 mg PO HS [facility] Last Admin: 12/14/17 21:00 Dose: Not Given Pantoprazole Sodium (Protonix Inj) 40 mg IVP Q12 [facility] Last Admin: 12/14/17 21:01 Dose: 40 mg Polyethylene Glycol/Electrolytes (Golytely) 2,000 ml PO ONCE ONE Stop: 12/15/17 05:01 Results - Vital Signs Recent Vital Signs: Last Vital Signs Temp 97.9 F 12/14/17 23:25 Pulse 90 12/14/17 23:25 Resp 20 12/14/17 23:25 BP 164/76 H 12/14/17 23:25 Pulse Ox 98 12/14/17 17:55 - Labs Result Diagrams: 12/14/17 19:56 12/14/17 05:30 Labs: Laboratory Results - last 24 hr 12/14/17 12/14/17 12/14/17 05:30 05:30 05:30 WBC 5.2 RBC 2.86 L Hgb 8.2 L D Hct 24.7 L MCV 86.4 MCH 28.7 MCHC 33.2 RDW 14.7 H Plt Count 190 MPV 9.7 Gran % 48.9 L Lymph % (Auto) 39.6 H [place] % (Auto) 7.1 H Eos % (Auto) 4.2 Baso % (Auto) 0.2 Gran # 2.53 Lymph # (Auto) 2.1 [place] # (Auto) 0.4 Eos # (Auto) 0.2 Baso # (Auto) 0.01 PT INR APTT Sodium 139 Potassium 4.8 Chloride 106 Carbon Dioxide 28 Anion Gap 10 BUN 21 Creatinine 1.2 Est GFR ( Amer) 52 Est GFR (Non-Af Amer) 43 Random Glucose 111 H Calcium 8.6 Iron TIBC % Saturation Total Bilirubin 0.3 AST 29 ALT 27 Alkaline Phosphatase 37 L D Total Protein 5.6 L Albumin 3.2 Globulin 2.4 Albumin/Globulin Ratio 1.3 Carcinoembryonic Ag 1.4 Blood Type Blood Type Confirm Antibody Screen Crossmatch BBK History Checked 12/14/17 12/14/17 12/14/17 10:00 10:36 13:15 WBC 5.0 RBC 2.78 L Hgb 8.0 L Hct 23.9 L MCV 86.0 MCH 28.8 MCHC 33.5 RDW 14.5 Plt Count 165 MPV 8.8 Gran % 57.7 Lymph % (Auto) 32.7 [place] % (Auto) 6.4 H Eos % (Auto) 3.0 Baso % (Auto) 0.2 Gran # 2.88 Lymph # (Auto) 1.6 [place] # (Auto) 0.3 Eos # (Auto) 0.2 Baso # (Auto) 0.01 PT INR APTT Sodium Potassium Chloride Carbon Dioxide Anion Gap BUN Creatinine Est GFR ( Amer) Est GFR (Non-Af Amer) Random Glucose Calcium Iron TIBC % Saturation Total Bilirubin AST ALT Alkaline Phosphatase Total Protein Albumin Globulin Albumin/Globulin Ratio Carcinoembryonic Ag Blood Type A POSITIVE Blood Type Confirm A POSITIVE Antibody Screen Negative Crossmatch See Detail BBK History Checked No verified bt 12/14/17 12/14/17 12/14/17 19:56 19:56 19:56 WBC 4.8 RBC 2.59 L Hgb 7.4 L Hct 22.6 L MCV 87.3 MCH 28.6 MCHC 32.7 RDW 14.8 H Plt Count 165 MPV 9.4 Gran % Lymph % (Auto) [place] % (Auto) Eos % (Auto) Baso % (Auto) Gran # Lymph # (Auto) [place] # (Auto) Eos # (Auto) Baso # (Auto) PT 11.5 INR 1.01 APTT 29.7 Sodium Potassium Chloride Carbon Dioxide Anion Gap BUN Creatinine Est GFR ( Amer) Est GFR (Non-Af Amer) Random Glucose Calcium Iron 77 TIBC 200 L % Saturation 39 Total Bilirubin AST ALT Alkaline Phosphatase Total Protein Albumin Globulin Albumin/Globulin Ratio Carcinoembryonic Ag Blood Type Blood Type Confirm Antibody Screen Crossmatch BBK History Checked Attending/Attestation - Attestation I have personally seen and examined this patient.: Yes I have fully participated in the care of the patient.: Yes I have reviewed all pertinent clinical information: Yes Notes (Text): This is an addendum to GI consult report dictated by the Electrical Drafter.The patient was seen and evaluated earlier. Medical records, lab studies, imagings were reviewed. Last 24 hours events reviewed. Agreed with the above treatment plan as outlined in Electrical Drafter 's notes with the addition of the following This patient was admitted On examination abdomen Note request forwith episodes of ight blood per rectum and maroon stools Denies any abdominal Pain CT scan was reviewed Patient did have colon a few years ago while she was in [place] A few years ago History of taking NSADs The recommendation is follow-up hemoglobin EGD scheuled today consider consider colonoscopy after review the above 12/14/17 23:30
--- NOTE | 2017-12-14 15:03 | NM ---
Date of service: 12/14/2017 PROCEDURE: Nuclear medicine gastrointestinal bleeding scan. HISTORY: GI Bleed COMPARISON: None available. TECHNIQUE: 4ccof patient blood was withdrawn and mixed with 21.3mCi of technetium ultra tagged. Images of the abdomen and pelvis were obtained in the anterior projection at 1 min intervals over a period of 45 min. FINDINGS: No abnormal extravasation of tracer was observed throughout the exam to indicate active bleeding within or outside the gastrointestinal tract. Physiologic activity was seen in the heart, liver, spleen and blood vessels. IMPRESSION: No evidence of active gastrointestinal bleeding.
[2017-12-14] MEDS ORDERED: Sodium Chloride 0.45% 1,000 ML IV SCH (15:45)
--- NOTE | 2017-12-14 15:57 | CARD ---
APPROVED REPORT Date of service: 12/13/2017 EKG Measurement Heart [id number] <Conclusion> Sinus rhythm with premature atrial complexes Otherwise normal ECG
[2017-12-14] MEDS ORDERED: Propofol 10 mg/ml Inj (20 ML) ONE (16:54)
[2017-12-14] MEDS ORDERED: Midazolam 2 MG/2 ML VIAL ONE (16:55)
[2017-12-14] MEDS ORDERED: Sodium Chloride 0.9% 1,000 ML IV SCH (17:30)
[2017-12-14] MEDS ORDERED: Peg-Electrolyte Oral Soln 4L (Golytely) PO ONE (17:42)
[2017-12-14] MEDS ORDERED: Bisacodyl 5mg EC Tab PO ONE (19:00)
--- NOTE | 2017-12-14 19:28 | HP ---
HISTORY OF PRESENT ILLNESS: Ms. Nina is an 82-year-old female, admitted with bright red blood per rectum. She has history of hypertension and osteoarthritis. Blood pressure controlled with current medications. She had several loose stools with bright red blood. CAT scan of the abdomen and pelvis with p.o. contrast showed diverticulosis. No diverticulitis. No mass lesion identified in the abdomen. She had a colonoscopy 4 years ago, which was normal. No shortness of breath. No nausea. No vomiting. GI consultation requested. She underwent EGD today, which is essentially normal. No source of bleeding identified. Currently on Protonix b.i.d. and IV fluids. PAST MEDICAL HISTORY: Hypertension, osteoarthritis, depression. PAST SURGICAL HISTORY: Right femur fracture. FAMILY HISTORY: never smoked. No history of alcohol abuse. SOCIAL HISTORY: Lives at home. ALLERGIES: NO KNOWN DRUG ALLERGIES. HOME MEDICATIONS: Allopurinol 100 mg p.o. at bedtime, aspirin 1 tablet daily, cetirizine 10 mg p.o. at bedtime, Ellipta one inhalation, Bystolic 20 mg p.o. at bedtime, Ultracet 1 tablet p.o. b.i.d. p.r.n., Cymbalta 20 mg daily, Lunesta 300 mg p.o. at bedtime, meloxicam 15 mg p.o. daily, pravastatin 40 mg p.o. at bedtime, Nexium 40 mg daily. REVIEW OF SYSTEMS: As per HPI. Rest of 12-point review of systems reviewed negative. PHYSICAL EXAMINATION: GENERAL: Comfortable in bed, in no acute distress. VITAL SIGNS: Temperature 98, heart rate is 77 per minute, respiratory rate 18 per minute, blood pressure 150/74, pulse ox is 99% on room air. HEENT: Pallor positive. NECK: No lymphadenopathy. CHEST: Air entry present and equal bilateral. No added sound. CARDIOVASCULAR: S1 and S2 normal. No murmur. No gallop. ABDOMEN: Soft, nontender. No hepatosplenomegaly. EXTREMITY: No edema. 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 No focal sensorimotor deficit. LABORATORY DATA: Labs on admission: White count 5.5, hemoglobin 10.4, hematocrit 31.1, platelet 204. Sodium 136, potassium 4.1, BUN 24, creatinine 1.5, glucose 119. CT abdomen and pelvis as per HPI. EKG, normal sinus rhythm. No ST-T elevation. No T inversions. Labs done today at 1300 hours: Hemoglobin declined to 8 g/dL, hematocrit 23.9, platelet 169. ASSESSMENT: 1. Gastrointestinal bleed. 2. Hypertension. 3. Diverticulosis. PLAN: Upper GI endoscopy did not show any source of bleeding. CAT scan abdomen and pelvis is unremarkable except diverticulosis. No evidence of diverticulitis. GI consultation, Dr. Miranda appreciated. Protonix 40 mg IV p.o. b.i.d., IV fluids at 100 mL an hour. Liquid diet. We will continue Bystolic 20 mg p.o. at bedtime, Cymbalta 20 mg p.o. daily, Cardura 4 mg daily, Norvasc 5 mg daily. Allopurinol 100 mg p.o. at bedtime. Hemoglobin declined from 10 gm/dL to 8 gm/dL. We will give 2 units of blood transfusion today and continue to monitor closely. Colonoscopy planned for tomorrow. CBC close monitoring. Rebecca Ferreira MD [facility]
[2017-12-14 20:00] LABS: HEMOGLOBIN 7.4 g/dL (12.0-16.0); MEAN CELL VOLUME 87.3 fl (80.0-105.0); MEAN CORPUSCULAR HEMOGLOBIN 28.6 pg (25.0-35.0); MEAN CORPUSCULAR HGB CONC 32.7 g/dl (31.0-37.0); MEAN PLATELET VOLUME 9.4 fl (7.0-11.0); RBC 2.59 10^6/uL (3.5-6.1); RED CELL DISTRIBUTION WIDTH 14.8 % (11.5-14.5); WHITE BLOOD COUNT 4.8 10^3/ul (4.5-11.0)
[2017-12-14 20:09] LABS: INR 1.01; IRON 77 ug/dL (45-180); PARTIAL THROMBOPLASTIN TIME 29.7 Seconds (25.1-36.5); PROTHROMBIN TIME 11.5 SECONDS (9.4-12.5)
[2017-12-14 20:18] LABS: % IRON SATURATION 39 % (20-55); TOTAL IRON BINDING CAPACITY 200 ug/dL (265-497)
[2017-12-14] MEDS: NEBIVOLOL 20 MG PO SCH (21:00)
[2017-12-14] MEDS: ESZOPICLONE 3 MG PO SCH (21:00)
[2017-12-15 00:28] LABS: BASO # 0.02 K/mm3 (0.0-2.0); BASO % 0.3 % (0.0-3.0); EOS # 0.4 (0.0-0.7); EOS % 6.2 % (1.5-5.0); GRAN # 3.04 (1.4-6.5); GRAN % 46.3 % (50.0-68.0); LYMPH # 2.3 (1.2-3.4); LYMPH % 34.9 % (22.0-35.0); MEAN CELL VOLUME 84.7 fl (80.0-105.0); MEAN CORPUSCULAR HGB CONC 33.1 g/dl (31.0-37.0); MEAN PLATELET VOLUME 9.3 fl (7.0-11.0); MONO # 0.8 (0.1-0.6); MONO % 12.3 % (1.0-6.0); RBC 3.53 10^6/uL (3.5-6.1); RED CELL DISTRIBUTION WIDTH 15.7 % (11.5-14.5); WHITE BLOOD COUNT 6.6 10^3/ul (4.5-11.0)
[2017-12-15 00:32] LABS: HEMOGLOBIN 9.9 g/dL (12.0-16.0)
[2017-12-15] MEDS ORDERED: Peg-Electrolyte Oral Soln 4L (Golytely) PO ONE (05:00)
[2017-12-15 06:44] LABS: BASO # 0.03 K/mm3 (0.0-2.0); BASO % 0.4 % (0.0-3.0); EOS # 0.6 (0.0-0.7); EOS % 7.8 % (1.5-5.0); GRAN # 3.16 (1.4-6.5); GRAN % 44.7 % (50.0-68.0); HEMOGLOBIN 11.3 g/dL (12.0-16.0); LYMPH # 2.6 (1.2-3.4); LYMPH % 37.1 % (22.0-35.0); MEAN CELL VOLUME 83.4 fl (80.0-105.0); MEAN CORPUSCULAR HGB CONC 33.5 g/dl (31.0-37.0); MEAN PLATELET VOLUME 9.7 fl (7.0-11.0); MONO # 0.7 (0.1-0.6); RBC 4.04 10^6/uL (3.5-6.1); RED CELL DISTRIBUTION WIDTH 15.6 % (11.5-14.5); WHITE BLOOD COUNT 7.1 10^3/ul (4.5-11.0)
[2017-12-15] MEDS ORDERED: Bisacodyl 5mg EC Tab PO ONE (07:00)
[2017-12-15 08:05] LABS: ALB/GLOB RATIO 1.5 (1.1-1.8); ALBUMIN 3.8 g/dL (3.0-4.8); CALCIUM 9.2 mg/dL (8.4-10.5)
--- NOTE | 2017-12-15 08:36 | PN ---
DATE: 12/15/2017 SUBJECTIVE: An 82-year-old [place] female. Admitted to the hospital with bright red blood per rectum. The patient down to hemoglobin of 7.4. She was transfused back to a hemoglobin of 11. She was taken to endoscopy by Dr. Miranda yesterday, was found to have gastritis. She had not completed her prep for colonoscopy. She will repeat her colonoscopy today or tomorrow. Hemoglobin currently is 11.3. The patient has no further bleeding. Vital signs are stable. She is awake and alert and oriented x3. Her INR is stable. BUN and creatinine are stable. Her iron level was 77. Her total iron binding capacity was 200. Total bilirubin is 1.4. Rest of liver enzymes are normal. Physical examination is unchanged. The patient is stable. Chest is clear to auscultation and percussion. Heart examination regular sinus rhythm. No significant murmurs. Abdomen is soft. Mesfin Bronson MD
--- NOTE | 2017-12-15 09:15 | CP.PCM.PN ---
Subjective - Date & Time of Evaluation Date of Evaluation: 12/15/17 Time of Evaluation: 09:13 - Subjective Subjective: GI Progress Note for Dr. Miranda's Service- [place], PGY2 Patient seen and assessed at bedside. Patient noted to be acutely anemic on serial CBC's and was transfused two units of pRBC's overnight. She denies any complaints at this time and is aware that she will go for colonoscopy tomorrow. Patient denies any fevers, chills, chest pain, SOB, abdominal pain, N/V/D/C, melena, changes in urine output or any skin changes. Objective - Vital Signs/Intake and Output Vital Signs (last 24 hours): Temp Pulse Resp BP Pulse Ox 98 F 74 18 173/88 H 96 12/15/17 07:58 12/15/17 07:58 12/15/17 07:58 12/15/17 07:58 12/15/17 07:58 Intake and Output: 12/15/17 12/15/17 06:59 18:59 Intake Total 1905 Balance 1905 - Medications Medications: Current Medications Allopurinol (Zyloprim) 100 mg PO [facility] Last Admin: 12/14/17 21:00 Dose: 100 mg Amlodipine Besylate (Norvasc) 5 mg PO DAILY [facility] Last Admin: 12/14/17 09:39 Dose: 5 mg Doxazosin Mesylate (Cardura) 4 mg PO DAILY [facility] Last Admin: 12/14/17 09:38 Dose: 4 mg Duloxetine HCl (Cymbalta) 20 mg PO DAILY [facility] Last Admin: 12/14/17 09:39 Dose: 20 mg Sodium Chloride (Sodium Chloride 0.45%) 1,000 mls @ 75 mls/hr IV .[id number] [facility] Eszopiclone [Lunesta (] 3 Mg (Home Med)) 3 mg PO [facility] Last Admin: 12/14/17 21:00 Dose: Not Given Nebivolol [Bystolic] (20 Mg (Home Med)) 20 mg PO [facility] Last Admin: 12/14/17 21:00 Dose: Not Given Pantoprazole Sodium (Protonix Inj) 40 mg IVP Q12 [facility] Last Admin: 12/14/17 21:01 Dose: 40 mg - Labs Labs: 12/15/17 06:00 12/15/17 06:30 PT 11.5 SECONDS (9.4-12.5) 12/14/17 19:56 INR 1.01 12/14/17 19:56 APTT 29.7 Seconds (25.1-36.5) 12/14/17 19:56 - Constitutional Appears: Non-toxic, No Acute Distress - Head Exam Head Exam: ATRAUMATIC, NORMOCEPHALIC - Eye Exam Eye Exam: EOMI - ENT Exam ENT Exam: Mucous Membranes Moist - Neck Exam Neck Exam: Full ROM - Respiratory Exam Respiratory Exam: NORMAL BREATHING PATTERN. absent: Accessory Muscle Use, Respiratory Distress - Cardiovascular Exam Cardiovascular Exam: RRR, +S1, +S2 - GI/Abdominal Exam GI & Abdominal Exam: Soft, Normal Bowel Sounds. absent: Bruit, Distended, Firm , Guarding, Rigid, Tenderness, Diminished Bowel Sounds, Hernia, Hyperactive Bowel Sounds, Hypoactive Bowel Sounds, Mass, Organomegaly, Pulsatile Mass, Rebound - Rectal Exam Rectal Exam: Deferred - Extremities Exam Extremities Exam: absent: Calf Tenderness, Pedal Edema - Neurological Exam Neurological Exam: Alert, Awake, Oriented x3 - Psychiatric Exam Psychiatric exam: Normal Affect, Normal Mood - Skin Skin Exam: Dry, Intact, Normal Color, Warm Assessment and Plan - Assessment and Plan (Free Text) Assessment: 82 year old female with a past medical history significant for HTN, OA, GERD, Osteoporosis and MDD who presents after multiple episodes of hematochezia. Since her admission, she has been noted to have multiple BM's with associated hematochezia. A CT Abdomen/Pelvis without contrast was done and showed sigmoid diverticulosis without evidence diverticulitis and a partially calcified low attenuation liver lesion in the right hepatic lobe. Plan: -EGD done and showed a small hiatal hernia and no source of GI hemorrhage -NM GI Scan negative for any GI hemorrhage -CT Abdomen/Pelvis reviewed and discussed with patient; No source of GI hemorrhage noted -H/H dropped to 7.4/22.6 from 10.4/31.1 on admission overnight; Transfused two units of pRBC's with appropriate response in H/H -Continue to monitor H/H with Q6H CBC -Continue Half Normal Saline at 75mls/hr -NPO (Except Medications) -Continue IVP PPI Q12 GI Disposition: Patient to undergo colonoscopy tomorrow (9/12) for further evaluation of GI hemorrhage source identification. Patient seen and case discussed with attending, Dr. Miranda.
[2017-12-15 11:50] LABS: HEMOGLOBIN 11.4 g/dL (12.0-16.0); MEAN CELL VOLUME 83.2 fl (80.0-105.0); MEAN CORPUSCULAR HEMOGLOBIN 28.6 pg (25.0-35.0); MEAN CORPUSCULAR HGB CONC 34.3 g/dl (31.0-37.0); MEAN PLATELET VOLUME 9.9 fl (7.0-11.0); RBC 3.99 10^6/uL (3.5-6.1); RED CELL DISTRIBUTION WIDTH 15.8 % (11.5-14.5); WHITE BLOOD COUNT 6.9 10^3/ul (4.5-11.0)
[2017-12-15 18:17] LABS: HEMOGLOBIN 11.1 g/dL (12.0-16.0); MEAN CELL VOLUME 83.4 fl (80.0-105.0); MEAN CORPUSCULAR HEMOGLOBIN 27.9 pg (25.0-35.0); MEAN CORPUSCULAR HGB CONC 33.4 g/dl (31.0-37.0); MEAN PLATELET VOLUME 9.4 fl (7.0-11.0); RBC 3.98 10^6/uL (3.5-6.1); RED CELL DISTRIBUTION WIDTH 15.9 % (11.5-14.5); WHITE BLOOD COUNT 6.8 10^3/ul (4.5-11.0)
[2017-12-15] MEDS ORDERED: Propofol 10 mg/ml Inj (20 ML) ONE (18:57)
[2017-12-15] MEDS ORDERED: Sodium Chloride 0.9% 1,000 ML IV SCH (19:30)
[2017-12-15 20:26] VITALS: RESP 18
[2017-12-15 20:43] VITALS: PULSE 71
[2017-12-15] MEDS: ESZOPICLONE 3 MG PO SCH (21:18)
[2017-12-15] MEDS: NEBIVOLOL 20 MG PO SCH (21:18)
[2017-12-16 00:39] LABS: MEAN CELL VOLUME 83.8 fl (80.0-105.0); MEAN CORPUSCULAR HEMOGLOBIN 28.4 pg (25.0-35.0); MEAN CORPUSCULAR HGB CONC 33.9 g/dl (31.0-37.0); MEAN PLATELET VOLUME 9.3 fl (7.0-11.0); RBC 3.52 10^6/uL (3.5-6.1); WHITE BLOOD COUNT 5.7 10^3/ul (4.5-11.0)
[2017-12-16 06:27] LABS: HEMOGLOBIN 10.6 g/dL (12.0-16.0); MEAN CELL VOLUME 83.9 fl (80.0-105.0); MEAN CORPUSCULAR HEMOGLOBIN 28.5 pg (25.0-35.0); MEAN PLATELET VOLUME 9.6 fl (7.0-11.0); RBC 3.72 10^6/uL (3.5-6.1); RED CELL DISTRIBUTION WIDTH 15.9 % (11.5-14.5); WHITE BLOOD COUNT 5.7 10^3/ul (4.5-11.0)
[2017-12-16 07:29] VITALS: BP 158/66; TEMP 98.3; O2SAT 95
--- NOTE | 2017-12-16 12:11 | PN ---
DATE: 12/16/2017 SUBJECTIVE: An 82-year-old [place] female admitted to the hospital with lower GI bleed. Patient was found to have diverticulosis without acute bleeding. At this time, she is having gastritis without bleeding. She was transfused back to stable hemoglobin. She is awake, alert and oriented x3. She is asking to be discharged. The patient's family will be contacted for possible discharge home today. Chest is clear to auscultation and percussion. Heart examination examination reveals sinus rhythm. Abdomen is soft. IMPRESSION: Status post diverticular bleed, anemia of blood loss, history of hypertension and coronary artery disease. Mesfin Bronson MD
--- NOTE | 2017-12-17 00:17 | CP.PCM.PN ---
Subjective - Date & Time of Evaluation Date of Evaluation: 12/16/17 Time of Evaluation: 09:00 - Subjective Subjective: Comfortable in bed. Colonoscopy planned for today. No rectal bleed overnight. Objective - Vital Signs/Intake and Output Vital Signs (last 24 hours): Temp Pulse Resp BP Pulse Ox 98.3 F 71 18 158/66 H 95 12/16/17 06:00 12/16/17 09:09 12/16/17 06:00 12/16/17 09:09 12/16/17 06:00 - Labs Labs: 12/16/17 05:40 PT 11.5 SECONDS (9.4-12.5) 12/14/17 19:56 INR 1.01 12/14/17 19:56 APTT 29.7 Seconds (25.1-36.5) 12/14/17 19:56 - Constitutional Appears: Well, Non-toxic - Head Exam Head Exam: ATRAUMATIC, NORMAL INSPECTION - Eye Exam Eye Exam: Normal appearance Pupil Exam: NORMAL ACCOMODATION - Neck Exam Neck Exam: Normal Inspection - Respiratory Exam Respiratory Exam: Clear to Ausculation Bilateral, NORMAL BREATHING PATTERN - Cardiovascular Exam Cardiovascular Exam: REGULAR RHYTHM, +S1, +S2 - GI/Abdominal Exam GI & Abdominal Exam: Soft, Normal Bowel Sounds - Extremities Exam Extremities Exam: Normal Inspection - Back Exam Back Exam: NORMAL INSPECTION - Neurological Exam Neurological Exam: Alert, Awake, Oriented x3 - Psychiatric Exam Psychiatric exam: Normal Affect - Skin Skin Exam: Normal Color, Warm Assessment and Plan - Assessment and Plan (Free Text) Assessment: 1. rectal bleed. colonoscopy done today. Showed internal hemorroids. No mass lesion. EGD no bleeding source identified. 2. Hb/hct stable. 3. CV : stable. Thank you Dr. Bronson for allowing us to participate in her care.
== END 2017-12-16 11:58 | disposition home or self-care (01) | DRG 378 ==
LOC: ED 15:14 → ERH 17:49 → 3RNO 19:56 → OBSVTOIN 12-15 11:25
PROVIDERS: ADMIT Internal Medicine Medical Oncology; ATTEND Internal Medicine
PROC: 0DJ08ZZ Inspection of Upper Intestinal Tract, Via Natural or Artificial Opening Endoscopic (ICD-10-PCS; 2017-12-14)
PROC: 0DJD8ZZ Inspection of Lower Intestinal Tract, Via Natural or Artificial Opening Endoscopic (ICD-10-PCS; principal; 2017-12-15 17:15)
DX: K92.2 Gastrointestinal hemorrhage, unspecified (principal); D62 Acute posthemorrhagic anemia; K57.30 Diverticulosis of large intestine without perforation or abscess without bleeding; K64.9 Unspecified hemorrhoids; K44.9 Diaphragmatic hernia without obstruction or gangrene; D64.9 Anemia, unspecified; I10 Essential (primary) hypertension; I25.10 Atherosclerotic heart disease of native coronary artery without angina pectoris; K21.9 Gastro-esophageal reflux disease without esophagitis; K29.70 Gastritis, unspecified, without bleeding; K59.00 Constipation, unspecified; K60.2 Anal fissure, unspecified; M81.0 Age-related osteoporosis without current pathological fracture; Z79.1 Long term (current) use of non-steroidal anti-inflammatories (NSAID); Z79.82 Long term (current) use of aspirin; Z90.49 Acquired absence of other specified parts of digestive tract; Z87.81 Personal history of (healed) traumatic fracture